=== PATIENT | male | born 1960 | race Caucasian/White ===

== ENCOUNTER 2016-12-06 06:25 | Day surgery (SDC) | payer BC ==
--- NOTE | 2016-11-21 17:35 | HP ---
PREOPERATIVE HISTORY AND PHYSICAL: DATE OF ADMISSION/SURGERY: 12/06/16 [facility] DATE OF OFFICE VISIT/ENCOUNTER: 11/20/16 ATTENDING SURGEON: Maye Centeno MD PROCEDURE: Left thumb carpometacarpal joint arthroplasty. CHIEF COMPLAINT: Left thumb pain. HISTORY OF PRESENT ILLNESS: This is a 56-year-old male who has had ongoing pain at the base of his left thumb for the past 15 to 20 years. He has been treated with cortisone injections that have worked for chunks of time but eventually wear off and the pain returns. The patient reports that any activity that involves use of his thumb causes the pain and it is progressively worsening. He is having difficulty using his thumb for any meaningful activity secondary to the pain. 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 At this point, he is interested in pursuing more definitive treatment for this problem in the form of a CMC arthroplasty. He has agreed to proceed the surgery with Dr. Centeno. PAST MEDICAL HISTORY: 1. Sciatica. 2. Hypertension. PAST SURGICAL HISTORY: 1. Left shoulder surgery. 2. Appendectomy. 3. Bilateral carpal tunnel release. MEDICATIONS: 1. Amlodipine Besylate 5 mg daily. 2. Ibuprofen 200 mg p.r.n. 3. Lisinopril. ALLERGIES: TRAMADOL causes hives. FAMILY MEDICAL HISTORY: Heart disease. 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 He is a current smoker, reports smoking less than a pack per day and has done so for the past 30 years. He denies recreational drug use. He does admit to alcohol use on rare occasion. REVIEW OF SYSTEMS: General: Negative for fevers, chills or night sweats. The patient does report having a vasovagal reaction during anesthesia in the past. HEENT: Negative for headache, lightheadedness or syncopal episodes. Integumentary: Negative for abrasions, lesions or open wounds. Cardiothoracic : Negative for hypertension, chest pain, palpitations or edema. Pulmonary: Negative for shortness of breath with exertion, chronic cough or COPD. GI: Negative for nausea, vomiting, diarrhea, constipation or GERD. : Negative for nocturia, urinary frequency, urgency, history of UTIs or kidney problems. Musculoskeletal: Positive for current complaint. Negative for chronic or intermittent back pain or history of fractures. Neurological: Negative for paresthesias, numbness, history of seizures, stroke or epilepsy. Negative for depression, or anxiety. Endocrine: Negative for diabetes or thyroid issues. Hematologic: Negative for easy bruising, anemia, excessive bleeding or history of DVT. Infectious Disease: Negative for history of MRSA, hepatitis C or HIV. PHYSICAL EXAMINATION GENERAL: A well-developed, well-nourished 56-year-old male in no acute distress. VITAL SIGNS: Height 5 feet 11-3/4 inches, weight 190 pounds, pulse rate 96, blood pressure 140/99. HEENT: Normocephalic, atraumatic. Pupils were equal, round and reactive to light and accommodation. Extraocular movements are intact. Throat is clear. NECK: Supple. No palpable lymph nodes. PULMONARY: Lungs are clear to auscultation bilaterally. No wheezes, rales or rhonchi. CARDIOTHORACIC: Regular rate and rhythm. S1, S2. No murmurs, rubs or gallops. No edema. ABDOMEN: Positive bowel sounds. Soft, nontender. MUSCULOSKELETAL: On exam of his right thumb,he has tenderness to palpation at the CMC joint and positive grind test. He has good motion at the MP joint. NEUROLOGIC: Alert and oriented x3. Cranial nerves II through XII were intact. Sensation is intact to light touch. Peripheral vascular 2+ radial and ulnar pulses. SKIN: Intact. Neurovascular function is intact. DIAGNOSTIC STUDIES: X-rays, AP, lateral and oblique of the left thumb shows severe degenerative arthritis with complete loss of the joint space at the CMC joint. IMPRESSION: Left thumb carpometacarpal joint arthritis. PLAN: The patient is scheduled to undergo left thumb carpometacarpal joint arthroplasty with Dr. Centeno on 12/06/16. He will return to the office 10 to 14 postop for followup and suture removal. Prescription for [place] was e-scribed to the patient's pharmacy for postoperative pain management. KATHIA HANNA [id number]/[facility] #: [id number] [facility]
[~2016-12-06 06:25] MED LIST: Buffered Lidocaine 1% SYRIN* 3 ML/SYR SYRINGE INTRADERM ONE
[2016-12-06] MEDS ORDERED: ceFAZolin 2 GM PREMIX(*) 2 GM/50 ML BAG IVPB ONE (06:37)
[2016-12-06] MEDS ORDERED: Bupivacaine 0.5% SDV PF* 30 ML VIAL ONE (07:33)
[2016-12-06] MEDS ORDERED: fentaNYL* 50 MCG/ML 2 ML VIAL (100 MCG VIAL) ONE (07:36)
[2016-12-06] MEDS ORDERED: Midazolam* 1 MG/ML 2 ML VIAL (2 MG) ONE (07:36)
[2016-12-06] MEDS ORDERED: Propofol* 10 MG/ML 20 ML BTL IV PUSH ONE (07:37)
[2016-12-06] MEDS ORDERED: Sodium Citrate/Citric Acid* 15 ML UDC ONE (07:41)
[2016-12-06] MEDS ORDERED: Labetalol IV* 5 MG/ML 20 ML VIAL ONE (08:35)
[2016-12-06] MEDS ORDERED: amLODIPine TAB* 5 MG ONE (09:03)
[2016-12-06] MEDS ORDERED: HYDROcodone/ACETAMIN 5-325 MG* 1 TAB ONE (09:29)
[2016-12-06 09:52] VITALS: BP 148/88
--- NOTE | 2016-12-06 23:12 | OP ---
DATE OF OPERATION: 12/06/16 - [facility] DATE OF : 58 SURGEON: Maye Centeno MD WALLPAPER CLEANER: KATHIA Freeman ANESTHESIOLOGIST: Pardeep Gomes DO ANESTHESIA: General. PRE-OP DIAGNOSIS: Left thumb carpometacarpal arthritis. POST-OP DIAGNOSIS: Left thumb carpometacarpal arthritis. OPERATIVE PROCEDURE: Left thumb CMC arthroplasty. ESTIMATED BLOOD LOSS: Zero. TOURNIQUET TIME: About 45 minutes. INDICATIONS FOR PROCEDURE: Bobby is a 56-year-old male with pain to base of his left thumb for many years. He has CMC arthritis, presents for left thumb CMC arthroplasty. DESCRIPTION OF PROCEDURE: The patient was brought to the operating room, was given a general anesthetic and placed in the supine position on the operating table with a tourniquet around his left upper arm. The skin of his left upper extremity was prepped and draped in the usual sterile fashion. A curvilinear incision was made centered at the base of the thumb, CMC joint dorsoradially and we dissected bluntly through the subcutaneous tissue. Branches of the radial sensory nerve were located and retracted. The APL and EPB tendons were retracted as well. The certified ophthalmic surgical assistant, Oc Schmidt, was essential for the completion of the surgery, providing retraction and positioning during the entirety of the case. A distally based U-shaped flap was created at the thumb CMC joint and subperiosteally dissected off the trapezium. The trapezium was then removed in its entirety. The wound was irrigated and then the CMC joint capsule was secured to the FCR tendon on the base of the wound. The remainder of the capsule was closed with 4-0 nylon suture. This gave very good positioning of the metacarpal and the MP joint was in about 20 degrees of flexion. Skin edges were reapproximated with 4-0 nylon suture and then, the wound dressed with Xeroform, 4x4, Webril, and a thumb spica splint. The patient tolerated the procedure well and was brought to the recovery room in good condition. [id number]/[facility] #: [id number] [facility]
== END 2016-12-06 09:45 | disposition home or self-care (01) ==
LOC: OREAST 06:25
PROVIDERS: ATTEND Orthopaedic Surgery
DX: M18.12 Unilateral primary osteoarthritis of first carpometacarpal joint, left hand (principal); I10 Essential (primary) hypertension; F17.210 Nicotine dependence, cigarettes, uncomplicated
CPT/HCPCS: 88304; 88311; A9270-GY; J0690; J2250; J2704; J3010

== ENCOUNTER 2017-01-20 11:17 | Emergency (ER) | payer BC ==
[2017-01-20 11:23] VITALS: BP 155/102
[2017-01-20] MEDS ORDERED: Ibuprofen TAB* 600 MG PO ONE (12:11)
--- NOTE | 2017-01-20 12:17 | ED ---
Lower Extremity - HPI Summary HPI Summary: Patient was outside with his 160lb dog yesterday when the dog ran into his right leg. He was knocked to the ground. He had mild pain but thought he would improve. He took ibuprofen and iced. This AM he had swelling and increased pain so he applied a brace and came to the ED. He denies locking, or catching, but it does feel "floaty" The knee has not given out on him and he denies prior injury. He is able to bear weight. - History of Current Complaint Chief Complaint: EDExtremityLower Stated Complaint: RT KNEE PAIN Time Seen by Provider: 01/20/17 11:25 Hx Obtained From: Patient Mechanism Of Injury: Blunt Trauma Onset of Pain: Immediate Onset/Duration: Days - 1 Pain Intensity: 2 Timing: Constant Location: Is Discrete @ - right knee Character Of Pain: Sharp, Aching Associated Signs And Symptoms: Positive: Swelling - mild, Knee Pain Aggravating Factor(s): Standing Alleviating Factor(s): Rest Able to Bear Weight: Yes - Allergies/Home Medications Allergies/Adverse Reactions: Allergies Allergy/AdvReac Type Severity Reaction Status Date / Time Meloxicam Allergy Severe Rash Verified 12/06/16 06:47 Procaine [From Novocain] Allergy Severe Anaphylatic Verified 12/06/16 06:47 Shock Tramadol Allergy Severe Hives Verified 12/06/16 06:47 Ketorolac Tromethamine Allergy Intermediate Rash Verified 12/06/16 06:47 [From Toradol] PMH/Surg Hx/FS Hx/Imm Hx Endocrine/Hematology History: Denies: Hx Diabetes, Hx Thyroid Disease Cardiovascular History: Reports: Hx Hypertension, Hx Rheumatic Fever - A CHILD Denies: Hx Pacemaker/ICD Respiratory History: Denies: Hx Asthma, Hx Chronic Obstructive Pulmonary Disease (COPD) GI History: Denies: Hx Ulcer Musculoskeletal History: Reports: Hx Arthritis - BILATERAL THUMBS, Other Musculoskeletal History - RIGHT SHOULDER IMPINGEMENT Sensory History: Reports: Hx Contacts or Glasses Denies: Hx Hearing Aid Opthamlomology History: Reports: Hx Contacts or Glasses Neurological History: Reports: Other Neuro Impairments/Disorders - VASOVAGAL RESPONSE TO NEEDLE Psychiatric History: Denies: Hx Panic Disorder - Surgical History Surgery Procedure, Year, and Place: Aug 2013 - Shoulder surgery. carpal tunnel bilat hands 1997. appendectomy as a child Hx Anesthesia Reactions: Yes - real nausea with vomiting Infectious Disease History: No Infectious Disease History: Denies: Hx Clostridium Difficile, Hx Hepatitis, Hx Human Immunodeficiency Virus (HIV), Hx of Known/Suspected MRSA, Hx Shingles, Hx Tuberculosis, Hx Known/ Suspected VRE, Hx Known/Suspected VRSA, History Other Infectious Disease, Traveled Outside the [place] in Last 30 Days - Family History Known Family History: Positive: None - Social History Occupation: Employed Full-time Lives: With Family Alcohol Use: Rare Substance Use Type: Reports: None Smoking Status (MU): Light Every Day Tobacco Smoker Amount Used/How Often: 20+ years Cessation Counseling: Patient Advised to Stop Review of Systems Positive: Myalgia, Decreased ROM, Edema Negative: Paresthesia, Numbness All Other Systems Reviewed And Are Negative: Yes Physical Exam Triage Information Reviewed: Yes Vital Signs On Initial Exam: Initial Vitals Temp Pulse Resp BP Pulse Ox 98.0 F 82 20 155/102 100 01/20/17 11:20 01/20/17 11:20 01/20/17 11:20 01/20/17 11:20 01/20/17 11:20 Vital Signs Reviewed: Yes Appearance: Positive: Well-Appearing, Well-Nourished, Pain Distress Skin: Positive: Warm, Skin Color Reflects Adequate Perfusion, Dry, Soft Head/Face: Positive: Normal Head/Face Inspection Eyes: Positive: EOMI, PRIMITIVO, Conjunctiva Clear ENT: Positive: Hearing grossly normal Respiratory/Lung Sounds: Positive: Breath Sounds Present Cardiovascular: Positive: RRR Musculoskeletal: Positive: Limited @ - extension to 0, flexion to 80; stable varus/valgus stress with neg. Shaun, Pain @ - TTP popliteal fossa and MCL, Edema Right - mild Neurological: Positive: Sensory/Motor Intact, Alert, Oriented to Person Place, Time, NV Bundle Intact Distally, Abnormal Gait Diagnostics - Vital Signs Vital Signs Temp Pulse Resp BP Pulse Ox 01/20/17 11:23 97.4 F 80 20 155/102 100 01/20/17 11:20 98.0 F 82 20 155/102 100 - Laboratory Lab Statement: Any lab studies that have been ordered have been reviewed, and results considered in the medical decision making process. - Radiology No standard instances Xray Interpretation: No Acute Changes Radiology Interpretation Completed By: Radiologist Lower Extremity Course/Dx - Diagnoses Differential Diagnosis/HQI/PQRI: Positive: Arthritis, Bursitis, Cellulitis, Compartment Syndrome, Contusion, Dislocation, Fracture (Closed), Sprain, Strain Provider Diagnoses: Right knee sprain Discharge - Discharge Plan Condition: Stable Disposition: HOME Patient Education Materials: Knee Sprain (ED) Referrals: Soren Shields MD [Primary Care Provider] - Additional Instructions: Wear your brace to protect you as your pain improves. Come out of the brace several times daily to perform gentle range of motion exercises to avoid stiffness. Elevate your knee above your heart and apply ice for 20 minutes several times daily to decrease swelling and pain. Use ibuprofen 600mg three times daily with meals for the next 3-5 days to decrease swelling and pain as well. Follow-up with your primary care provider if symptoms do not begin to improve in the next 7-10 days. Return to the emergency department if your symptoms worsen.
--- NOTE | 2017-01-20 12:48 | RAD ---
Indication: Right knee pain. 4 views of the right knee demonstrates no fracture or dislocation. No other bone or joint abnormality is identified. IMPRESSION: NO FRACTURE OF THE RIGHT KNEE IS NOTED.
== END 2017-01-20 13:10 | disposition home or self-care (01) ==
LOC: ED 11:17
DX: S83.91XA Sprain of unspecified site of right knee, initial encounter (principal); M79.1 Myalgia; R60.9 Edema, unspecified; F17.210 Nicotine dependence, cigarettes, uncomplicated; W54.1XXA Struck by dog, initial encounter; Y93.9 Activity, unspecified; Y92.9 Unspecified place or not applicable
CPT/HCPCS: 99281; A9270-GY

== ENCOUNTER 2017-09-27 08:38 | Emergency (ER) | payer BC ==
[2017-09-27 09:00] VITALS: BP 187/104
--- NOTE | 2017-09-27 09:51 | UC ---
You Garcia Nilda, scribed for Primo Nichols MD on 09/27/17 at 0904 . Dental HPI - HPI Summary HPI Summary: This patient is a 57 year old M [place] [facility] [place] a chief complaint of constant tooth ache and swelling (tooth #27) since yesterday. Patient requests abx and is hoping to see his dentist in a few days. The patient rates the pain 3 /10 in severity. Symptoms aggravated by palpation, and alleviated by nothing. NKDA. - History of Current Complaint Stated Complaint: TOOTH ACHE Hx Obtained From: Patient Onset/Duration: Sudden Onset, Lasting Days, Still Present Severity: Mild Pain Intensity: 3 Pain Scale Used: 0-10 Numeric Aggravating Factor(s): Other - palpation Alleviating Factor(s): Nothing - Allergies/Home Medications Allergies/Adverse Reactions: Allergies Allergy/AdvReac Type Severity Reaction Status Date / Time ketorolac [From Toradol] Allergy Rash Verified 09/27/17 08:56 meloxicam Allergy Rash Verified 09/27/17 08:54 tramadol Allergy Hives Verified 09/27/17 08:55 novacaine Allergy anaph Uncoded 09/27/17 08:55 PMH/Surg Hx/FS Hx/Imm Hx Cardiovascular History: Other Other Cardiovascular History: heart murmur, HTN GI/ History: Other Other GI/ History: Appendicitis - Surgical History Surgical History: Yes Surgery Procedure, Year, and Place: Aug 2013 - Shoulder surgery. carpal tunnel bilat hands 1997. appendectomy as a child - Family History Known Family History: Positive: None - reviewed non contributory - Social History Alcohol Use: Rare Substance Use Type: None Smoking Status (MU): Light Every Day Tobacco Smoker Amount Used/How Often: 20+ years Review of Systems ENT: Dental Pain - and swelling of tooth #27 Respiratory: Other - negative SOB All Other Systems Reviewed And Are Negative: Yes Physical Exam Triage Information Reviewed: Yes Vital Signs: Initial Vital Signs Temp 97.8 F 09/27/17 08:57 Pulse 71 09/27/17 08:57 Resp 20 09/27/17 08:57 BP 187/104 09/27/17 08:57 Pulse Ox 100 09/27/17 08:57 Vital Signs Reviewed: Yes - Additional Comments VITAL SIGNS: Reviewed. GENERAL: Patient is a well developed and nourished M who is lying comfortable in the stretcher. Patient is not in any acute respiratory distress. HEAD AND FACE: Normocephalic EYES: PERRLA, EOMI x 2. EARS: Hearing grossly intact. MOUTH: No trismus, airway is patent, no swelling of the jaw, tender at tooth # 27 with cavities. NECK: Supple, trachea is midline, no adenopathy, no JVD, no carotid bruit. CHEST: Symmetric, no tenderness at palpation LUNGS: Clear to auscultation bilaterally. No wheezing or crackles. CVS: Regular rate and rhythm, S1 and S2 present, no murmurs or gallops appreciated. ABDOMEN: Soft, non-tender. Bowel sounds are normal. No abdominal abnormal pulsations. EXTREMITIES: Full ROM in all major joints, no edema, no cyanosis or clubbing. NEURO: Alert and oriented x 3. No acute neurological deficits. Speech is normal and follows commands. SKIN: Dry and warm Re-Evaluation - Re-Evaluation First Eval Re-Evaluation Time: 09:01 Comment: Discussed blood pressure and advised to follow up with PCP. Dental Complaint Course/Dx - Course Course Of Treatment: This patient is a 57 year old M presenting [place] [facility] [place] a chief complaint of constant tooth ache and swelling (tooth #27) since yesterday. Patient requests abx and is hoping to see his dentist in a few days. The patient rates the pain 3/10 in severity. Symptoms aggravated by palpation, and alleviated by nothing. NKDA. Medications given. BP has increased. Patient has not taken medications. He states he will take medications when he gets home. He will follow up with PCP to control of blood pressure. The pt is hemodynamically stable, alert and oriented x3. Patient is Dx with dental pain. I discussed all the findings and test results with the patient. Pt was instructed to return to the urgent care or go to ER immediately if any of the symptoms return or worsens. Plan of care was discussed with the patient and pt understands and agrees. All questions were answered to patient satisfaction. There were no further complaints or concerns. - Differential Dx/Diagnosis Differential Diagnosis/Dx: Dental Abscess, Dental Caries, Fractured Tooth, Gingivitis Provider Diagnoses: Dental pain Discharge - Discharge Plan Condition: Stable Disposition: HOME Prescriptions: Amoxicillin/Clavulanate TAB* [Augmentin TAB 875*] 875 mg PO BID #20 tab Patient Education Materials: Toothache (ED) Referrals: Soren Shields MD [Primary Care Provider] - Additional Instructions: Take medications as instructed Increase your fluid intake Return to the UC if symptoms worsen The documentation as recorded by the You figueroa Nilda accurately reflects the service I personally performed and the decisions made by , Primo Nichols MD.
== END 2017-09-27 09:03 | disposition home or self-care (01) ==
LOC: UCEAST 08:38
DX: K08.89 Other specified disorders of teeth and supporting structures (principal); R01.1 Cardiac murmur, unspecified; I10 Essential (primary) hypertension; Z88.4 Allergy status to anesthetic agent; Z88.5 Allergy status to narcotic agent; F17.200 Nicotine dependence, unspecified, uncomplicated
CPT/HCPCS: 99212; G0463

== ENCOUNTER 2019-03-23 08:09 | Emergency (ER) | payer BC ==
[2019-03-23 08:49] LABS: ABS Basophils 0.1 10^3/ul (0-0.2); ABS Eosinophils 0.4 10^3/ul (0-0.6); ABS Lymphocytes 3.3 10^3/ul (1.0-4.8); ABS Monocytes 0.5 10^3/ul (0-0.8); ABS Neutrophils 3.8 10^3/ul (1.5-7.7); Eosinophil % 5.3 %; Hematocrit 44 % (42-52); Hemoglobin 15.5 g/dL (14.0-18.0); Lymphocyte % 40.4 %; Mean Corpuscular HGB Conc 35 g/dL (31-36); Mean Corpuscular Hemoglobin 31 pg (27-31); Mean Corpuscular Volume 90 fL (80-94); Mean Platelet Volume 7.3 fL (7.4-10.4); Platelet Count 459 10^3/uL (150-450); Red Blood Count 4.93 10^6 /uL (4.18-5.48); Red Cell Distribution Width 14 % (10-15); White Blood Count 8.1 10^3/uL (3.5-10.8)
[2019-03-23 09:05] LABS: Albumin 4.6 g/dL (3.2-5.2); Albumin/Globulin Ratio 1.7 (1-3); BUN/Creatinine Ratio 13.2 (8-20); C Reactive Protein 3.71 mg/L (<8.01); Calcium 9.5 mg/dL (8.6-10.3); EGFR African American 79.3 (>60); EGFR Non-African American 65.5 (>60); Globulin 2.7 g/dL (2-4); Potassium 4.1 mmol/L (3.5-5.0); Total Bilirubin 0.4 mg/dL (0.2-1.0); Total Protein 7.3 g/dL (6.4-8.9)
[2019-03-23] MEDS ORDERED: Cephalexin CAP* 500 MG PO ONE (10:18)
--- NOTE | 2019-03-23 10:18 | ED ---
Skin Complaint - HPI Summary HPI Summary: 59-year-old male presents with rash on the past 6 days. [place]. Has had spreading redness. He has been wash the area and placed him. He denies any fevers or chills. No other symptoms. No drainage from the wound. Denies a history of MRSA. Has no medical conditions. - History of Current Complaint Chief Complaint: EDExtremityLower Time Seen by Provider: 03/23/19 08:26 Stated Complaint: SPIDER BITE WORSENING PER PT Pain Intensity: 3 - Allergy/Home Medications Allergies/Adverse Reactions: Allergies Allergy/AdvReac Type Severity Reaction Status Date / Time ketorolac [From Toradol] Allergy Rash Verified 09/27/17 08:56 meloxicam Allergy Rash Verified 09/27/17 08:54 tramadol Allergy Hives Verified 09/27/17 08:55 novacaine Allergy anaph Uncoded 09/27/17 08:55 PMH/Surg Hx/FS Hx/Imm Hx Endocrine/Hematology History: Denies: Hx Diabetes, Hx Thyroid Disease Cardiovascular History: Reports: Hx Hypertension - on meds, Hx Rheumatic Fever - A CHILD Denies: Hx Pacemaker/ICD Respiratory History: Denies: Hx Asthma, Hx Chronic Obstructive Pulmonary Disease (COPD) GI History: Denies: Hx Ulcer Musculoskeletal History: Reports: Hx Arthritis - BILATERAL THUMBS, Other Musculoskeletal History - RIGHT SHOULDER IMPINGEMENT Sensory History: Reports: Hx Contacts or Glasses Denies: Hx Hearing Aid Opthamlomology History: Reports: Hx Contacts or Glasses Neurological History: Reports: Other Neuro Impairments/Disorders - VASOVAGAL RESPONSE TO NEEDLE Psychiatric History: Denies: Hx Panic Disorder - Surgical History Surgery Procedure, Year, and Place: Aug 2013 - Shoulder surgery. carpal tunnel bilat hands 1997. appendectomy as a child Hx Anesthesia Reactions: Yes - real nausea with vomiting Infectious Disease History: No Infectious Disease History: Denies: Hx Clostridium Difficile, Hx Hepatitis, Hx Human Immunodeficiency Virus (HIV), Hx of Known/Suspected MRSA, Hx Shingles, Hx Tuberculosis, Hx Known/ Suspected VRE, Hx Known/Suspected VRSA, History Other Infectious Disease, Traveled Outside the [place] in Last 30 Days - Family History Known Family History: Positive: None - reviewed non contributory - Social History Alcohol Use: Rare Substance Use Type: Reports: None Smoking Status (MU): Light Every Day Tobacco Smoker Amount Used/How Often: 20+ years Review of Systems Negative: Fever Negative: Chest Pain Negative: Shortness Of Breath Positive: Rash All Other Systems Reviewed And Are Negative: Yes Physical Exam Triage Information Reviewed: Yes Vital Signs On Initial Exam: Initial Vitals Temp Pulse Resp BP Pulse Ox 97.3 F 79 18 187/119 97 03/23/19 08:13 03/23/19 08:13 03/23/19 08:13 03/23/19 08:13 03/23/19 08:13 Vital Signs Reviewed: Yes Appearance: Positive: Well-Appearing Skin: Positive: Warm, Dry, Other - erythema to back of right thigh with small area of black in center Head/Face: Positive: Normal Head/Face Inspection Eyes: Positive: Normal, Conjunctiva Clear ENT: Positive: Pharynx normal Respiratory/Lung Sounds: Positive: Clear to Auscultation, Breath Sounds Present Cardiovascular: Positive: Normal, RRR Musculoskeletal: Positive: Normal Neurological: Positive: Normal Psychiatric: Positive: Normal Diagnostics - Vital Signs Vital Signs Temp Pulse Resp BP Pulse Ox 03/23/19 08:13 97.3 F 79 18 187/119 97 - Laboratory Lab Results: Lab Results 03/23/19 03/23/19 03/23/19 Range/Units 08:41 08:41 08:41 WBC 8.1 (3.5-10.8) 10^3/uL RBC 4.93 (4.18-5.48) 10^6 /uL Hgb 15.5 (14.0-18.0) g/dL Hct 44 (42-52) % MCV 90 (80-94) fL MCH 31 (27-31) pg MCHC 35 (31-36) g/dL RDW 14 (10-15) % Plt Count 459 H (150-450) 10^3/uL MPV 7.3 L (7.4-10.4) fL Neut % (Auto) 47.3 % Lymph % (Auto) 40.4 % [place] % (Auto) 6.0 % Eos % (Auto) 5.3 % Baso % (Auto) 1.0 % Absolute Neuts (auto) 3.8 (1.5-7.7) 10^3/ul Absolute Lymphs (auto) 3.3 (1.0-4.8) 10^3/ul Absolute Monos (auto) 0.5 (0-0.8) 10^3/ul Absolute Eos (auto) 0.4 (0-0.6) 10^3/ul Absolute Basos (auto) 0.1 (0-0.2) 10^3/ul Absolute Nucleated RBC 0.0 10^3/ul Nucleated RBC % 0.0 Sodium 139 (135-145) mmol/L Potassium 4.1 (3.5-5.0) mmol/L Chloride 106 (101-111) mmol/L Carbon Dioxide 27 (22-32) mmol/L Anion Gap 6 (2-11) mmol/L BUN 15 (6-24) mg/dL Creatinine 1.14 (0.67-1.17) mg/dL Est GFR ( Amer) 79.3 (>60) Est GFR (Non-Af Amer) 65.5 (>60) BUN/Creatinine Ratio 13.2 (8-20) Glucose 144 H (70-100) mg/dL Lactic Acid 1.3 (0.5-2.0) mmol/L Calcium 9.5 (8.6-10.3) mg/dL Total Bilirubin 0.40 (0.2-1.0) mg/dL AST 27 (13-39) U/L ALT 27 (7-52) U/L Alkaline Phosphatase 49 (34-104) U/L C-Reactive Protein 3.71 (<8.01) mg/L Total Protein 7.3 (6.4-8.9) g/dL Albumin 4.6 (3.2-5.2) g/dL Globulin 2.7 (2-4) g/dL Albumin/Globulin Ratio 1.7 (1-3) Result Diagrams: 03/23/19 08:41 03/23/19 08:41 Lab Statement: Any lab studies that have been ordered have been reviewed, and results considered in the medical decision making process. - Ultrasound No standard instances Ultrasound Interpretation Completed By: Radiologist Summary of Ultrasound Findings: IMPRESSION: MILD SUBCUTANEOUS EDEMA WITHOUT LOCULATED FLUID COLLECTION TO SUGGEST ABSCESS. Course/Dx - Course Course Of Treatment: 59-year-old male presents with rash on the past 6 days. [place]. Has had spreading redness. He has been wash the area and placed him. He denies any fevers or chills. No other symptoms. No drainage from the wound. Denies a history of MRSA. Has no medical conditions. On exam has 5 cm x 4 area of erythema with some black area in the center. Ultrasound shows no abscess. White blood count normal. Will place patient on Keflex. Told to continue good wound care. Patient understands agrees with plan. - Differential Diagnoses - Skin Complaint Differential Diagnoses: Abscess, Cellulitis, Contact Dermatitis - Diagnoses Provider Diagnoses: Cellulitis Discharge - Sign-Out/Discharge Documenting (check all that apply): Patient Departure Patient Received Moderate/Deep Sedation with Procedure: No - Discharge Plan Condition: Good Disposition: HOME Prescriptions: Cephalexin CAP* [Keflex CAP*] 500 mg PO BID #19 cap Patient Education Materials: Cellulitis (ED) Referrals: Soren Shields MD [Primary Care Provider] - Additional Instructions: Take Keflex twice a day for 10 days keep wash area and apply neosporin Follow up with primary within 3 days Return to ED if develop fever, area of redness spreads, or any new or worsening symptoms - Billing Disposition and Condition Condition: GOOD Disposition: Home - Attestation Statements Provider Attestation: I was available for consult. This patient was seen by the TRISHA. The patient was not presented to, seen by, or examined by me. -Ann Marie
[2019-03-23 10:31] VITALS: BP 200/103
== END 2019-03-23 10:30 | disposition home or self-care (01) ==
LOC: ED 08:09
DX: L03.115 Cellulitis of right lower limb (principal); I10 Essential (primary) hypertension; F17.210 Nicotine dependence, cigarettes, uncomplicated; Z88.6 Allergy status to analgesic agent; Z88.4 Allergy status to anesthetic agent; Z88.5 Allergy status to narcotic agent; Z79.899 Other long term (current) drug therapy
CPT/HCPCS: 36415; 80053; 83605; 85025; 86140; 99282; A9270-GY

== ENCOUNTER 2021-02-23 12:11 | Inpatient (IN) ==
[2021-02-23 12:36] LABS: ABS Basophils 0.1 10^3/ul (0-0.2); ABS Eosinophils 0.2 10^3/ul (0-0.6); ABS Lymphocytes 3.1 10^3/ul (1.0-4.8); ABS Monocytes 0.5 10^3/ul (0-0.8); ABS Neutrophils 6.4 10^3/ul (1.5-7.7); Eosinophil % 1.7 %; Hematocrit 47 % (42-52); Lymphocyte % 30.5 %; Mean Corpuscular HGB Conc 34 g/dL (31-36); Mean Corpuscular Hemoglobin 31 pg (27-31); Mean Corpuscular Volume 91 fL (80-94); Mean Platelet Volume 7.4 fL (7.4-10.4); Platelet Count 494 10^3/uL (150-450); Red Blood Count 5.16 10^6 /uL (4.18-5.48); Red Cell Distribution Width 14 % (10-15); White Blood Count 10.3 10^3/uL (3.5-10.8)
[2021-02-23 12:54] LABS: ALT 30 U/L (7-52); AST 20 U/L (13-39); Albumin 4.5 g/dL (3.2-5.2); Albumin/Globulin Ratio 1.7 (1-3); Alkaline Phosphatase 56 U/L (35-149); Anion Gap 6 mmol/L (2-11); Blood Urea Nitrogen 14 mg/dL (6-24); CO2 Carbon Dioxide 29 mmol/L (22-32); Calcium 9.8 mg/dL (8.6-10.3); Chloride 102 mmol/L (101-111); EGFR Non-African American 64.4 (>60); Globulin 2.7 g/dL (2-4); Glucose 160 mg/dL (70-100); INR 1.1 (0.86-1.15); Potassium 3.7 mmol/L (3.5-5.0); Sodium 137 mmol/L (135-145); Total Protein 7.2 g/dL (6.4-8.9)
[2021-02-23 13:11] LABS: Troponin I 0.03 ng/mL (<0.03)
[2021-02-23] MEDS ORDERED: Ondansetron 4 mg VIAL 2 MG/ML 2 ml VIAL IV PRN (15:47)
[2021-02-23] MEDS ORDERED: Enoxaparin 40 MG/0.4 ML SYR SUBCUT SCH (16:00)
[2021-02-23] MEDS ORDERED: NS 0.9% 500 ml BAG 500 ML IV ONE (16:12)
[2021-02-23] MEDS ORDERED: Nitro 2% OINT (Nitroglycerin) 1 INCH/PAK TOPICAL ONE (16:44)
[2021-02-23 16:52] LABS: Troponin I 0.03 ng/mL (<0.03)
[2021-02-23] MEDS ORDERED: Enoxaparin 40 MG/0.4 ML SYR SUBCUT ONE (17:57)
[2021-02-23 19:23] LABS: Troponin I 0.03 ng/mL (<0.03)
[2021-02-23 23:26] LABS: Magnesium 1.9 mg/dL (1.9-2.7)
[2021-02-24 06:28] LABS: ABS Basophils 0.1 10^3/ul (0-0.2); ABS Eosinophils 0.2 10^3/ul (0-0.6); ABS Monocytes 0.6 10^3/ul (0-0.8); ABS Neutrophils 5.1 10^3/ul (1.5-7.7); Eosinophil % 2.5 %; Hematocrit 44 % (42-52); Hemoglobin 14.9 g/dL (14.0-18.0); Lymphocyte % 33.4 %; Mean Corpuscular HGB Conc 34 g/dL (31-36); Mean Corpuscular Hemoglobin 31 pg (27-31); Mean Corpuscular Volume 91 fL (80-94); Mean Platelet Volume 7.5 fL (7.4-10.4); Nucleated Red Blood Cells % 0.1; Platelet Count 434 10^3/uL (150-450); Red Cell Distribution Width 14 % (10-15)
[2021-02-24] MEDS: Enoxaparin 80 MG/0.8 ML SYR SUBCUT SCH ×2 (06:32→17:35)
[2021-02-24 06:43] LABS: Calcium 9.3 mg/dL (8.6-10.3); EGFR African American 81.2 (>60); EGFR Non-African American 67.1 (>60); HDL Cholesterol 34.8 mg/dL; Potassium 4.2 mmol/L (3.5-5.0); Troponin I 0.01 ng/mL (<0.03)
[2021-02-24] MEDS: TERBINAFINE HCL 250 MG PO SCH (08:19)
[2021-02-25] MEDS: Enoxaparin 80 MG/0.8 ML SYR SUBCUT SCH ×2 (06:30→16:53)
[2021-02-25] MEDS: TERBINAFINE HCL 250 MG PO SCH (08:50)
[2021-02-26] MEDS: Enoxaparin 80 MG/0.8 ML SYR SUBCUT SCH ×2 (05:42→17:26)
[2021-02-26] MEDS: TERBINAFINE HCL 250 MG PO SCH (07:59)
[2021-02-26] MEDS ORDERED: Regadenoson 0.4 MG/5 ML SYRINGE ONE (08:20)
[2021-02-26] MEDS ORDERED: Aminophylline 25 MG/ML VIAL ONE (08:20)
[2021-02-26] MEDS ORDERED: diPHENhydraMINE 25 mg TAB PO PRN (10:48)
[2021-02-26] MEDS ORDERED: NS 0.9% 1000 ml BAG 1,000 ML IV SCH ×2 (11:00→16:15)
[2021-02-26] MEDS ORDERED: diPHENhydraMINE 25 mg TAB ONE (13:26)
[2021-02-26] MEDS ORDERED: fentaNYL 100 mcg/2 ml 50 MCG/ML VIAL ONE (13:43)
[2021-02-26] MEDS ORDERED: Midazolam 5 mg/5 ml VIAL 1 mg/ml 5 ml VIAL (5 mg) ONE (13:43)
[2021-02-26] MEDS ORDERED: Iohexol 350 (CONTRAST) 200 ML MDV IV ONE ×2 (13:44→14:38)
[2021-02-26] MEDS ORDERED: Heparin 1,000 UNIT/ML 10 ml (10,000 UNITS) CATHLAB/DIALYSIS ONE (13:44)
[2021-02-26] MEDS ORDERED: Lidocaine 1% VIAL 10 MG/ML VIAL ONE (13:44)
[2021-02-26] MEDS ORDERED: Heparin 2 UNITS/ML 1000 mls 2,000 ML IV ONE (13:44)
[2021-02-26] MEDS ORDERED: nitroGLYCERIN DRIP 25,000 MCG/250 ML BTL ONE (13:44)
[2021-02-26] MEDS ORDERED: VERAPAMIL 2.5 MG/ML 2 ML VIAL ** 5 mg/2 ml ONE (13:44)
[2021-02-26] MEDS ORDERED: Phenylephrine 40 mcg/mL 10mL (400mcg) SYRINGE ONE ×2 (14:26→15:12)
[2021-02-26] MEDS ORDERED: Bivalirudin 250 MG VIAL ONE ×2 (14:38→15:35)
[2021-02-26] MEDS ORDERED: HYDROmorphone 1 MG/1 ML SYRINGE ONE ×2 (15:04→15:47)
[2021-02-26] MEDS ORDERED: Ondansetron 4 mg VIAL 2 MG/ML 2 ml VIAL ONE (15:11)
[2021-02-27 06:12] LABS: Calcium 8.6 mg/dL (8.6-10.3); Potassium 4.1 mmol/L (3.5-5.0)
[2021-02-27] MEDS: Enoxaparin 80 MG/0.8 ML SYR SUBCUT SCH (06:14)
[2021-02-27 06:18] LABS: EGFR African American 88.5 (>60); EGFR Non-African American 73.2 (>60)
[2021-02-27] MEDS: TERBINAFINE HCL 250 MG PO SCH (08:36)
[2021-02-27 08:46] LABS: Magnesium 2.1 mg/dL (1.9-2.7)
[2021-02-27 12:04] VITALS: BP 169/97
== END 2021-02-27 12:20 | disposition home or self-care (01) | DRG 174 ==
LOC: ED 12:11 → MEDTELE 15:39 → ICU 02-26 16:50
PROVIDERS: ADMIT Hospitalist; ATTEND Internal Medicine Critical Care Medicine